=== PATIENT | female | born 1985 | race American Indian/Alaskan Native ===

== ENCOUNTER 2019-04-19 00:51 | Emergency (ER) | payer OTHER ==
[2019-04-19] MEDS ORDERED: Famotidine 20 MG/2 ML SDV IVPUSH ONE (01:03)
[2019-04-19] MEDS ORDERED: Lactated Ringers 1,000 ML IV ONE (01:03)
[2019-04-19] MEDS ORDERED: Pantoprazole 40 MG Vial IVPUSH ONE (01:03)
[2019-04-19] MEDS ORDERED: Ondansetron 4 MG/2 ML SDV IVPUSH ONE ×2 (01:03→02:05)
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
[2019-04-19] MEDS: Sodium Chloride 0.9% 10 ML Syringe FLUSH PRN ×4 (01:32→02:34)
[2019-04-19 01:48] LABS: CHLORIDE,CL 108 mmol/L (98-107); SODIUM,NA 145 mmol/L (136-145)
[2019-04-19] MEDS ORDERED: Acetaminophen 325 MG Tab PO ONE (02:56)
== END 2019-04-19 03:15 ==
LOC: LL.ED 00:51
DX: R10.84 Generalized abdominal pain (principal); F41.8 Other specified anxiety disorders; F10.129 Alcohol abuse with intoxication, unspecified; E87.6 Hypokalemia; E83.51 Hypocalcemia; R03.0 Elevated blood-pressure reading, without diagnosis of hypertension; E66.9 Obesity, unspecified; Z68.30 Body mass index [BMI] 30.0-30.9, adult; Z71.6 Tobacco abuse counseling; F17.210 Nicotine dependence, cigarettes, uncomplicated; Z88.6 Allergy status to analgesic agent
CPT/HCPCS: 36415; 74022; 80053; 82150; 83605; 83690; 83735; 84550; 84703; 85025; 85610; 85730; 96361; 96374; 96375; 96376; 99284-25; A9270-GY; C9113; G0480; J2405; J3490; J7120